=== PATIENT | male | born 1935 | race Hispanic/Latino ===

== ENCOUNTER 2017-10-29 13:52 | Inpatient (IN) | payer MEDICARE, BC ==
[~2017-10-29] VITALS: Ht 170.2 cm; Wt 72.6 kg
[~2017-10-29 13:52] MED LIST: Z HYTRIN; Z.0.ACTOS30 MG; Z.0.ALTACE10 MG; Z.0.AMBIEN10 MG; Z.0.CELEBREX200 MG; Z.0.VICODIN 5-5001 E; Z.0.ZOCOR40 MG; [UNRECOGNIZED DRUG - SUPPLY]
[2017-10-29 14:30] LABS: BASOPHILS % 0.2 % (0.0-1.0); EOSINOPHILS % 0.3 % (0.0-6.0); HEMATOCRIT 37.9 % (38.2-49.6); HEMOGLOBIN 12.8 g/dL (14.0-18.0); LYMPHOCYTES # (AUTO) 0.4 (1.0-3.2); MEAN CORPUSCULAR HEMOGLOBIN 32.2 pg (28-32); MEAN CORPUSCULAR HGB CONC 33.8 g/dL (31-35); MEAN CORPUSCULAR VOLUME 95.5 fL (81-99); MONOCYTES # (AUTO) 0.5 (0.2-0.8); MONOCYTES % 5.3 % (4.4-11.3); NEUTROPHILS # (AUTO) 8.8 (2.1-6.9); NEUTROPHILS % 89.9 % (38.7-80.0); PLATELET COUNT 131 x10e3/uL (140-360); RED BLOOD COUNT 3.97 x10e6/uL (4.3-5.7); RED CELL DISTRIBUTION WIDTH 12.9 % (11.7-14.4)
[2017-10-29] MEDS ORDERED: ALBUTEROL/IPRATROPIUM 3 ML NEB NEB ONE (14:45)
[2017-10-29 14:49] LABS: ALANINE AMINOTRANSFERASE 19 IU/L (0-55); ALBUMIN 4.3 g/dL (3.5-5.0); ALBUMIN/GLOBULIN RATIO 1.5 (0.8-2.0); ALKALINE PHOSPHATASE 78 IU/L (40-150); AMYLASE 33 U/L (25-125); ANION GAP 14.8 mmol/L (8-16); BLOOD UREA NITROGEN 19 mg/dL (7-26); BUN/CREATININE RATIO 21 (6-25); CALCIUM 10.1 mg/dL (8.4-10.2); CARBON DIOXIDE 26 mmol/L (22-29); CHLORIDE 106 mmol/L (98-107); CREATINE KINASE 39 IU/L (30-200); CREATININE, SERUM 0.92 mg/dL (0.72-1.25); EST GLOMERULAR FILTRATION RATE > 60 ML/MIN (60-); GLUCOSE 136 mg/dL (74-118); LIPASE 4 U/L (8-78); POTASSIUM 3.8 mmol/L (3.5-5.1); SODIUM 143 mmol/L (136-145)
[2017-10-29] MEDS ORDERED: DIATRIZOATE MEGL/DIATRIZOA SOD 30 ML BTL PO ONE (15:10)
[2017-10-29] MEDS ORDERED: ONDANSETRON HCL INJ 2 MG/ML VIAL IV STA (15:31)
[2017-10-29] MEDS ORDERED: HYDROMORPHONE 2MG/ML INJ IV ONE (15:45)
--- NOTE | 2017-10-29 17:49 | Diagnostic Imaging Report ---
EXAM: CT Abdomen and Pelvis WITH contrast INDICATION: Abdominal pain, history of small bowel obstruction COMPARISON: None. TECHNIQUE: Abdomen and pelvis were scanned utilizing a multidetector helical scanner from the lung base to the pubic symphysis after administration of IV contrast. Coronal and sagittal reformations were obtained. Routine protocol was performed. Scan was performed when during portal venous phase. IV CONTRAST: 100 mL of Isovue-370 ORAL CONTRAST: None RADIATION DOSE: Total DLP: 474.59 mGy*cm Estimated effective dose: (DLP x 0.015 x size factor) mSv COMPLICATIONS: None FINDINGS: LINES and TUBES: None. LOWER THORAX: There is bibasilar atelectasis. Coronary artery disease present. HEPATOBILIARY: No focal hepatic lesions. No biliary ductal dilation. GALLBLADDER: No radio-opaque stones or sludge. No wall thickening. SPLEEN: No splenomegaly. PANCREAS: No focal masses or ductal dilatation. ADRENALS: No adrenal nodules KIDNEYS/URETERS: Kidneys enhance symmetrically. No hydronephrosis. No cystic or solid mass lesions. No stones. GI TRACT: Dilatation of the stomach and a small bowel with transition point in the right mid abdomen on series 2, image 55, sagittal series 300, image 57 and coronal series 301, image 42 There are diverticula within the colon without evidence of diverticulitis. Appendix is not clearly identified. There is however no fat stranding or adenopathy in the right lower quadrant to suggest appendicitis. PELVIC ORGANS/BLADDER: Unremarkable. LYMPH NODES: No lymphadenopathy. VESSELS: There is moderate atherosclerotic disease in the aorta and major arterial branches. PERITONEUM / RETROPERITONEUM: No free air or fluid. Extensive postsurgical changes in the lower abdomen compatible with prior bilateral hernia repairs BONES: There are degenerative changes in the lumbar spine. SOFT TISSUES: Unremarkable. IMPRESSION: 1. Findings are consistent with small bowel mechanical obstruction at the right lower mid abdomen just above the prior surgical repair compatible with adhesions. 2. There is atherosclerotic disease of the thoracoabdominal aorta and branches including moderate coronary artery calcifications. Signed by: Dr. Jose Justice M.D. on 10/29/2017 5:45 PM
[2017-10-29] MEDS ORDERED: IOPAMIDOL 370 MG/ML 200 ML INFUS..BTL INJ ONE (18:14)
[2017-10-29] MEDS ORDERED: SODIUM CHLORIDE 0.9% 50ML 50 ML ONE (18:14)
[2017-10-29 18:19] LABS: BILIRUBIN,URINE NEGATIVE (NEGATIVE); CLARITY,URINE CLEAR (CLEAR); COLOR,URINE YELLOW (YELLOW); KETONES,URINE NEGATIVE (NEGATIVE); LEUKOCYTE ESTERASE ,URINE NEGATIVE (NEGATIVE); NITRITE,URINE NEGATIVE (NEGATIVE); PROTEIN,URINE DIPSTICK NEGATIVE (NEGATIVE); URINE UROBILINOGEN 0.2 mg/dL (0.2 - 1)
[2017-10-29] MEDS ORDERED: GABAPENTIN300 MG PO (18:26)
[2017-10-29] MEDS ORDERED: NORCO 10-325 T1 EACH PO (18:26)
[2017-10-29] MEDS ORDERED: OMEPRAZOLE40 MG PO (18:26)
[2017-10-29] MEDS ORDERED: VITAMIN D1000 UNI1 PO (18:26)
[2017-10-29 18:30] LABS: EPITHELIAL CELLS,URINE RARE /LPF
[2017-10-29] MEDS ORDERED: [UNRECOGNIZED DRUG - OTHER] PO (18:32)
[2017-10-29] MEDS ORDERED: MIRALAX17 GM PO (18:32)
[2017-10-29] MEDS: MORPHINE SULFATE 2 MG/ML SYR IV PRN (18:45)
[2017-10-29] MEDS: ONDANSETRON HCL INJ 2 MG/ML VIAL IV PRN (18:47)
[2017-10-29] MEDS ORDERED: BENZOCAINE/TETRACAINE/BUTAMBEN AERO SPRAY 56 GM CAN ONE (18:51)
[2017-10-29 19:29] VITALS: BP 153/63
[2017-10-29] MEDS: D5.45%NS/KCL 20MEQ 1,000 ML IV SCH (19:57)
[2017-10-29] MEDS: LEVOFLOXACIN 500MG/D5W 100ML IV SCH (19:59)
[2017-10-29] MEDS: SODIUM CHLORIDE 0.9% 250ML IRRIG IR SCH ×2 (19:59→22:47)
[2017-10-29 20:00] VITALS: BP 153/63
[2017-10-29 20:27] VITALS: BP 153/63
[2017-10-29] MEDS ORDERED: METRONIDAZOLE 500MG/NS 100ML IV SCH (22:00)
[2017-10-29] MEDS: METRONIDAZOLE 500MG/NS 100ML 100 ML IV SCH (22:35)
[2017-10-30] VITALS (7 sets, daily range): BP systolic 127–148; BP diastolic 60–65
[2017-10-30] MEDS: ONDANSETRON HCL INJ 2 MG/ML VIAL IV PRN ×3 (00:47→14:31)
[2017-10-30] MEDS: MORPHINE SULFATE 2 MG/ML SYR IV PRN ×5 (00:47→20:36)
[2017-10-30] MEDS: SODIUM CHLORIDE 0.9% 250ML IRRIG IR SCH ×6 (02:43→22:30)
[2017-10-30] MEDS: METRONIDAZOLE 500MG/NS 100ML 100 ML IV SCH ×3 (05:26→22:27)
[2017-10-30 06:09] LABS: BASOPHILS % 0.1 % (0.0-1.0); EOSINOPHILS % 0.2 % (0.0-6.0); HEMATOCRIT 33.8 % (38.2-49.6); HEMOGLOBIN 11.6 g/dL (14.0-18.0); LYMPHOCYTES # (AUTO) 0.5 (1.0-3.2); LYMPHOCYTES % 6.4 % (18.0-39.1); MEAN CORPUSCULAR HEMOGLOBIN 32.4 pg (28-32); MEAN CORPUSCULAR HGB CONC 34.3 g/dL (31-35); MEAN CORPUSCULAR VOLUME 94.4 fL (81-99); MONOCYTES # (AUTO) 0.6 (0.2-0.8); MONOCYTES % 7.5 % (4.4-11.3); NEUTROPHILS # (AUTO) 7.1 (2.1-6.9); NEUTROPHILS % 85.3 % (38.7-80.0); PLATELET COUNT 138 x10e3/uL (140-360); RED BLOOD COUNT 3.58 x10e6/uL (4.3-5.7); RED CELL DISTRIBUTION WIDTH 13.2 % (11.7-14.4)
[2017-10-30 06:35] LABS: ANION GAP 11.9 mmol/L (8-16); BLOOD UREA NITROGEN 19 mg/dL (7-26); BUN/CREATININE RATIO 24 (6-25); CALCIUM 9.3 mg/dL (8.4-10.2); CARBON DIOXIDE 26 mmol/L (22-29); CHLORIDE 107 mmol/L (98-107); CREATININE, SERUM 0.78 mg/dL (0.72-1.25); EST GLOMERULAR FILTRATION RATE > 60 ML/MIN (60-); GLUCOSE 116 mg/dL (74-118); POTASSIUM 3.9 mmol/L (3.5-5.1); SODIUM 141 mmol/L (136-145)
[2017-10-30 08:41] LABS: ANISOCYTOSIS SLIGHT; LYMPHOCYTES % (MANUAL) 9 % (19-48); MONOCYTES % (MANUAL) 7 % (3.4-9.0); NEUTROPHILS % (MANUAL) 84 % (40-74); PLATELET ESTIMATE SLIGHTLY DECREASED; PLATELET MORPHOLOGY COMMENT NORMAL; RBC MORPHOLOGY COMMENT NORMAL
--- NOTE | 2017-10-30 08:42 | Consultation ---
DATE OF CONSULTATION: October 30, 2017 Patient is an 82-year-old male who has developed midabdominal pain yesterday. He says the pain was severe and now somewhat a little bit less and intermittent, but still present. He has had associated nausea with no vomiting. Came to the emergency room where CT scan of the abdomen and pelvis revealed small-bowel obstruction. He says he is not passing any flatus. Not had a bowel movement. He is not sure how it has been. Has had previous abdominal surgery, which was repair of bilateral inguinal hernias. He has also had radiation therapy for carcinoma of the prostate. Says he was hospitalized about 10 years ago with similar symptoms that resolved without requiring surgery. PAST MEDICAL HISTORY: Significant for chronic constipation and takes MiraLAX every day, carcinoma of the prostate, previous surgery for bilateral inguinal hernias, and Cruz's esophagus. ALLERGIES: PENICILLIN, SULFA AND ASPIRIN. HOME MEDICATIONS: Celebrex, gabapentin, hydrocodone, Prilosec, Actos, Altace, Zocor, Hytrin, Ambien, and vitamin D. FAMILY HISTORY: Noncontributory. SOCIAL HISTORY: Patient does not smoke cigarettes or drink alcohol. REVIEW OF SYSTEMS: Is as stated above. Has not had any fever or weight loss. PHYSICAL EXAMINATION GENERAL: The patient is awake and alert, and in no distress. NG tube in place. VITALS: Normal. Blood pressure is normal. He is not tachycardic. HEENT: Reveals no scleral icterus. NECK: Has no masses. LUNGS: Equal breath sounds are clear bilaterally. CARDIAC: Regular rate and rhythm with no murmur. ABDOMEN: Mildly distended. It is soft. There is epigastric tenderness. There is no mass. There is no organomegaly. EXTREMITIES: Have no edema. LAB TESTS: White blood cell count on admission was normal at 9.7, hemoglobin 12.9 and hematocrit 37.9. Platelet count is normal. Chemistries are essentially normal with normal lactic acid. Normal lipase and normal liver functions. ASSESSMENT: An 82-year-old male with small-bowel obstruction. PLAN: Recommend continued nasogastric tube on low section and repeat the abdominal x-ray today. Continue IV fluids. If symptoms do not improve, he may require surgical intervention. Thank you for asking me to see Mr. Cantu. Job#: [id number] TRENT
--- NOTE | 2017-10-30 08:45 | Diagnostic Imaging Report ---
PROCEDURE:ABDOMEN COMP INCL UPR OR DECUB TECHNIQUE:Upright and supine AP views abdomen totaling 3 radiographs INDICATION:Small bowel obstruction COMPARISON:Patients [facility], CT, CT ABDOMEN/PELVIS W, 10/29/2017, 16:18. FINDINGS: See conclusion. CONCLUSION: 1. Nasogastric tube tip at the gastric body. 2. Persistent gaseous small bowel distention up to 5 cm in diameter, with air-fluid levels in the midabdomen. Stool in the ascending colon. Findings remain consistent with small bowel obstruction and are not significantly changed from October 29 given differences in modality. Dictated by: Bob Matias M.D. on 10/30/2017 at 8:48 Electronically approved by: Bob Matias M.D. on 10/30/2017 at 8:48
[2017-10-30] MEDS ORDERED: ACETAMINOPHEN 1000 MG/100 ML IV PRN (09:15)
[2017-10-30] MEDS: D5.45%NS/KCL 20MEQ 1,000 ML IV SCH (09:57)
[2017-10-30] MEDS: PANTOPRAZOLE 40 MG 10ML VIAL IV SCH (09:57)
--- NOTE | 2017-10-30 09:57 | Consultation ---
DATE OF CONSULTATION: October 30, 2017 GASTROENTEROLOGY CONSULTATION REASON FOR CONSULTATION: Small-bowel obstruction. HISTORY OF PRESENT ILLNESS: Mr. Cantu is a pleasant, 82-year-old gentleman who reports a history of prostate radiation with bowel complications, adhesions and a history of prior small-bowel obstruction about 10 years ago that self-resolved with supportive management. He says that he chronically has some issues with his bowels, which he attributes to prior radiation, and he also has had a colonoscopy with Dr. Boothe which was relatively unremarkable several years ago per his report. He last had a bowel movement 2 days ago. He is not currently passing any gas. He had nausea but no vomiting and now has an NG tube in. Imaging is concerning for small-bowel obstruction. He has a history of inguinal hernia surgery. PAST MEDICAL HISTORY 1. Chronic constipation on daily MiraLAX and high-fiber diet. 2. Prostate cancer, status post XRT. 3. Inguinal hernia repair. 4. GERD with Cruz's esophagus. MEDICATION AND ALLERGIES: Reviewed, please see MAR and medication reconciliation form. SOCIAL HISTORY: No alcohol, tobacco or illicit substances. FAMILY HISTORY: Reviewed and noncontributory. REVIEW OF SYSTEMS: A 10-system review is positive for that mentioned in HPI, otherwise unremarkable. PHYSICAL EXAMINATION GENERAL: Competent, alert, in no acute distress. HEENT: Pupils are equal, round and reactive to light. NG tube is in place. NECK: Supple. LUNGS: Clear. CARDIOVASCULAR: S1 and S2. ABDOMEN: Soft. Not particularly distended on my exam. He is mildly tender in the upper abdomen. He has decreased bowel sounds. EXTREMITIES: No clubbing, cyanosis or edema. PSYCH: Calm, cooperative. NEUROLOGIC: Nonfocal. HEM-ONC: No bruising or adenopathy. Electronic health records reviewed for laboratory and radiologic studies. ASSESSMENT 1. Small-bowel obstruction. 2. History of pelvic radiation. 3. History of inguinal hernia repair. 4. Gastroesophageal reflux disease and Cruz's. PLAN: At the current time, will continue him n.p.o. with decompression. Will need to support him with fluids and medications as needed. Will monitor and replace electrolytes as needed. Will monitor his abdomen clinically. Dr. Aguilar is already seeing him in case he does not improve with medical management. I would recommend that he go on a low-residue diet after this episode when he is discharged. Thank you very much for asking me to see Mr. Cantu. Any questions or concerns, please do not hesitate to contact me. I will follow with you. Job#: [id number] VIPIN HOLDER
[2017-10-30] MEDS: KETOROLAC TROMETHAMINE 30 MG/ML VIAL IV PRN (09:58)
[2017-10-30] MEDS ORDERED: BISACODYL 10 MG SUPP PR NR (10:00)
[2017-10-30] MEDS ORDERED: MINERAL OIL 132 ML BTL PR NR ×2 (10:00→13:20)
[2017-10-30] MEDS: LEVOFLOXACIN 500MG/D5W 100ML IV SCH (18:35)
[2017-10-31] VITALS (7 sets, daily range): BP systolic 101–146; BP diastolic 50–65
[2017-10-31] MEDS: SODIUM CHLORIDE 0.9% 250ML IRRIG IR SCH ×9 (02:30→22:30)
[2017-10-31] MEDS: D5.45%NS/KCL 20MEQ 1,000 ML IV SCH ×3 (03:08→23:50)
[2017-10-31] MEDS: MORPHINE SULFATE 2 MG/ML SYR IV PRN (04:27)
[2017-10-31 06:02] LABS: HEMATOCRIT 33.2 % (38.2-49.6); MEAN CORPUSCULAR HEMOGLOBIN 32.2 pg (28-32); MEAN CORPUSCULAR HGB CONC 33.1 g/dL (31-35); MEAN CORPUSCULAR VOLUME 97.1 fL (81-99); PLATELET COUNT 117 x10e3/uL (140-360); RED BLOOD COUNT 3.42 x10e6/uL (4.3-5.7); RED CELL DISTRIBUTION WIDTH 13.3 % (11.7-14.4)
[2017-10-31 06:22] LABS: ANION GAP 9.1 mmol/L (8-16); BLOOD UREA NITROGEN 19 mg/dL (7-26); BUN/CREATININE RATIO 22 (6-25); CALCIUM 9.1 mg/dL (8.4-10.2); CARBON DIOXIDE 26 mmol/L (22-29); CHLORIDE 105 mmol/L (98-107); CREATININE, SERUM 0.85 mg/dL (0.72-1.25); EST GLOMERULAR FILTRATION RATE > 60 ML/MIN (60-); GLUCOSE 120 mg/dL (74-118); POTASSIUM 4.1 mmol/L (3.5-5.1); SODIUM 136 mmol/L (136-145)
[2017-10-31] MEDS: METRONIDAZOLE 500MG/NS 100ML 100 ML IV SCH ×3 (06:32→22:58)
[2017-10-31] MEDS: CHLORASEPTIC SPRAY 177 ML BTL MM PRN ×2 (06:50→22:58)
[2017-10-31 06:58] LABS: FOLATE 17.2 ng/mL (7.0-15.4)
[2017-10-31 07:07] LABS: BAND NEUTROPHILS % (MANUAL) 5 %; EOSINOPHILS % (MANUAL) 5 % (0-7); LYMPHOCYTES % (MANUAL) 7 % (19-48); METAMYELOCYTES % (MANUAL) 2 % (0-0); MONOCYTES % (MANUAL) 4 % (3.4-9.0); NEUTROPHILS % (MANUAL) 77 % (40-74)
[2017-10-31 07:08] LABS: ANISOCYTOSIS SLIGHT; PLATELET ESTIMATE SLIGHTLY DECREASED; PLATELET MORPHOLOGY COMMENT NORMAL; POIKILOCYTOSIS SLIGHT
[2017-10-31 07:09] LABS: RBC MORPHOLOGY COMMENT NORMAL
[2017-10-31 07:27] LABS: THYROID STIMULATING HORMONE 0.641 uIU/mL (0.350-4.940)
[2017-10-31] MEDS: PANTOPRAZOLE 40 MG 10ML VIAL IV SCH (08:06)
[2017-10-31] MEDS: KETOROLAC TROMETHAMINE 30 MG/ML VIAL IV PRN (09:16)
[2017-10-31] MEDS ORDERED: DIPHENHYDRAMINE HCL INJ 50 MG/ML VIAL IM PRN (13:00)
[2017-10-31] MEDS ORDERED: NALOXONE HCL INJ 0.4 MG/ML AMP IV PRN (13:00)
[2017-10-31] MEDS ORDERED: ACETAMINOPHEN 1000 MG/100 ML IV PRN (13:00)
[2017-10-31] MEDS ORDERED: MORPHINE SULFATE 1 MG/ML 30ML PCA IV PRN (13:00)
[2017-10-31] MEDS ORDERED: HYDROMORPHONE 1MG/1ML INJ ONE (13:03)
[2017-10-31] MEDS ORDERED: MORPHINE SULFATE 1 MG/ML 30ML PCA ONE (13:12)
[2017-10-31] MEDS: DEXTROSE 5%/LACTATED RINGERS 1,000 ML IV SCH ×2 (14:10→20:47)
--- NOTE | 2017-10-31 15:08 | Operative Report ---
DATE OF PROCEDURE: October 31, 2017 PREOPERATIVE DIAGNOSIS: Small-bowel obstruction. 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 PROCEDURE: 1. Exploratory laparotomy. 2. Small-bowel resection. PORTFOLIO MANAGER: None. ANESTHESIA: General. INDICATIONS AND FINDINGS: The patient is an 82-year-old male who presented with complaints of abdominal pain, nausea and vomiting. Workup revealed a small-bowel obstruction. At surgery patient was found to have a small-bowel obstruction secondary to a strictured segment of small bowel where there were inspissated GI contents. At the point of obstruction, the proximal bowel was dilated. Distal bowel was collapsed. The colon was collapsed. TECHNIQUE: After adequate general endotracheal anesthesia, patient in supine position, the abdomen was prepped and draped in sterile fashion with Hermes solution. Through a lower midline incision, the peritoneal cavity was entered. Initial exploration revealed a large amount of serous ascites, which was aspirated. About a liter was aspirated. The small bowel was delivered into the wound. There was found to be a point of obstruction where there were inspissated small-bowel GI contents where there appeared to be a strictured segment of small bowel. The bowel proximal to the area of the stricture was divided with a PANCHO stapler, and the bowel distal to this was also divided with a PANCHO stapler. Mesentery was divided with the Enseal device, and the specimen was removed. Anastomosis was made between the proximal and distal bowel with a PANCHO stapler and TL-60 stapler. Mesenteric defect was then closed with 3-0 Vicryl. Hemostasis was seen to be adequate. The peritoneal cavity was irrigated with a large amount of warm saline, inspected for hemostasis, which was seen to be adequate. The midline fascia was then closed with a running suture of number 1 PDS. The subcutaneous tissue was irrigated with saline. Skin was closed with damaris. A sterile dressing was applied. The patient tolerated the procedure well. Estimated blood loss was 50 mL. There were no complications. All counts were correct. The patient was taken to the recovery room in satisfactory condition. Job#: [id number] EV cc:BRIAN WELLINGTON MD
[2017-10-31] MEDS: ONDANSETRON HCL INJ 2 MG/ML VIAL IV PRN ×2 (15:29→19:36)
[2017-10-31] MEDS: LEVOFLOXACIN 500MG/D5W 100ML IV SCH (17:48)
[2017-10-31] MEDS ORDERED: MIDAZOLAM HCL 2 MG/2 ML VIAL ONE (18:32)
[2017-10-31] MEDS ORDERED: FENTANYL CITRATE/PF 100MCG/2 ML INJ ONE (18:32)
[2017-10-31] MEDS ORDERED: SUCCINYLCHOLINE 200 MG/10 ML SYR ONE (19:43)
[2017-10-31] MEDS ORDERED: NEOSTIGMINE 5 MG/5ML SYR ONE (19:43)
[2017-10-31] MEDS ORDERED: SEVOFLURANE INHAL SOLN 250 ML PEN BTL ONE (19:43)
[2017-10-31] MEDS ORDERED: ONDANSETRON HCL INJ 2 MG/ML VIAL ONE (19:43)
[2017-10-31] MEDS ORDERED: PROPOFOL IV EMULSION 10 MG/ML 20 ML VIAL ONE (19:43)
[2017-10-31] MEDS ORDERED: EPHEDRINE SULFATE INJ 50 MG/10 ML SYR ONE (19:43)
[2017-10-31] MEDS ORDERED: ACETAMINOPHEN 1000 MG/100 ML IV ONE (19:43)
[2017-10-31] MEDS ORDERED: ROCURONIUM BROMIDE 10 MG/ML 5ML VIAL ONE (19:43)
[2017-10-31] MEDS ORDERED: LIDOCAINE HCL 2% LOCAL INJ 5 ML SDV VIAL INJ ONE (19:43)
[2017-10-31] MEDS ORDERED: GLYCOPYRROLATE INJ 1MG/ 5 ML SYR ONE (19:43)
[2017-10-31] MEDS ORDERED: DEXAMETHASONE SOD PHOS INJ 4 MG/ML VIAL ONE (19:43)
[2017-11-01] VITALS (7 sets, daily range): BP systolic 91–129; BP diastolic 49–60
[2017-11-01] MEDS: SODIUM CHLORIDE 0.9% 250ML IRRIG IR SCH ×6 (02:30→21:46)
[2017-11-01] MEDS: DEXTROSE 5%/LACTATED RINGERS 1,000 ML IV SCH (04:47)
[2017-11-01] MEDS: METRONIDAZOLE 500MG/NS 100ML 100 ML IV SCH ×3 (05:52→22:29)
[2017-11-01 06:43] LABS: EOSINOPHILS % 0.3 % (0.0-6.0); HEMATOCRIT 26.5 % (38.2-49.6); HEMOGLOBIN 8.8 g/dL (14.0-18.0); LYMPHOCYTES # (AUTO) 0.3 (1.0-3.2); LYMPHOCYTES % 7.6 % (18.0-39.1); MEAN CORPUSCULAR HEMOGLOBIN 32.2 pg (28-32); MEAN CORPUSCULAR HGB CONC 33.2 g/dL (31-35); MEAN CORPUSCULAR VOLUME 97.1 fL (81-99); MONOCYTES # (AUTO) 0.5 (0.2-0.8); MONOCYTES % 16.2 % (4.4-11.3); NEUTROPHILS # (AUTO) 2.5 (2.1-6.9); NEUTROPHILS % 75.9 % (38.7-80.0); PLATELET COUNT 101 x10e3/uL (140-360); RED BLOOD COUNT 2.73 x10e6/uL (4.3-5.7); RED CELL DISTRIBUTION WIDTH 13.3 % (11.7-14.4)
[2017-11-01 07:19] LABS: ANION GAP 10.3 mmol/L (8-16); BLOOD UREA NITROGEN 19 mg/dL (7-26); BUN/CREATININE RATIO 24 (6-25); CALCIUM 8.6 mg/dL (8.4-10.2); CARBON DIOXIDE 26 mmol/L (22-29); CHLORIDE 108 mmol/L (98-107); EST GLOMERULAR FILTRATION RATE > 60 ML/MIN (60-); GLUCOSE 118 mg/dL (74-118); POTASSIUM 4.3 mmol/L (3.5-5.1); SODIUM 140 mmol/L (136-145)
[2017-11-01 08:34] LABS: BAND NEUTROPHILS % (MANUAL) 12 %; LYMPHOCYTES % (MANUAL) 11 % (19-48); MONOCYTES % (MANUAL) 10 % (3.4-9.0); NEUTROPHILS % (MANUAL) 67 % (40-74); PLATELET ESTIMATE SLIGHTLY DECREASED; PLATELET MORPHOLOGY COMMENT NORMAL; RBC MORPHOLOGY COMMENT NORMAL
[2017-11-01] MEDS: PANTOPRAZOLE 40 MG 10ML VIAL IV SCH (08:46)
[2017-11-01] MEDS: CHLORASEPTIC SPRAY 177 ML BTL MM PRN (08:51)
[2017-11-01] MEDS: KETOROLAC TROMETHAMINE 30 MG/ML VIAL IV PRN ×2 (08:51→21:18)
[2017-11-01] MEDS: D5.45%NS/KCL 20MEQ 1,000 ML IV SCH ×2 (10:52→21:18)
[2017-11-01] MEDS ORDERED: FUROSEMIDE INJ 10 MG/ML 2 ML VIAL IV ONE (15:45)
[2017-11-01] MEDS ORDERED: SODIUM CHLORIDE 0.9% 500ML 500 ML IV ONE (15:45)
[2017-11-01] MEDS: LEVOFLOXACIN 500MG/D5W 100ML IV SCH (17:37)
[2017-11-02] VITALS (7 sets, daily range): BP systolic 121–148; BP diastolic 58–67
[2017-11-02] MEDS: MORPHINE SULFATE 2 MG/ML SYR IV PRN ×2 (00:04→04:18)
[2017-11-02] MEDS: SODIUM CHLORIDE 0.9% 250ML IRRIG IR SCH ×6 (03:18→22:30)
[2017-11-02] MEDS: METRONIDAZOLE 500MG/NS 100ML 100 ML IV SCH ×3 (05:11→21:35)
[2017-11-02] MEDS: PANTOPRAZOLE 40 MG 10ML VIAL IV SCH (08:33)
[2017-11-02] MEDS: KETOROLAC TROMETHAMINE 30 MG/ML VIAL IV PRN ×2 (09:00→17:43)
[2017-11-02] MEDS: D5.45%NS/KCL 20MEQ 1,000 ML IV SCH (09:09)
[2017-11-02] MEDS: LEVOFLOXACIN 500MG/D5W 100ML IV SCH (17:30)
[2017-11-02 20:55] LABS: ANION GAP 10.5 mmol/L (8-16); BLOOD UREA NITROGEN 18 mg/dL (7-26); BUN/CREATININE RATIO 21 (6-25); CALCIUM 8.9 mg/dL (8.4-10.2); CARBON DIOXIDE 26 mmol/L (22-29); CHLORIDE 107 mmol/L (98-107); CREATININE, SERUM 0.85 mg/dL (0.72-1.25); EST GLOMERULAR FILTRATION RATE > 60 ML/MIN (60-); GLUCOSE 122 mg/dL (74-118); MAGNESIUM 2.4 MG/DL (1.3-2.1); PHOSPHORUS 1.7 MG/DL (2.3-4.7); POTASSIUM 4.5 mmol/L (3.5-5.1); SODIUM 139 mmol/L (136-145)
[2017-11-03] VITALS (8 sets, daily range): BP systolic 132–170; BP diastolic 60–74
[2017-11-03] MEDS: KETOROLAC TROMETHAMINE 30 MG/ML VIAL IV PRN ×2 (02:07→13:14)
[2017-11-03] MEDS: SODIUM CHLORIDE 0.9% 250ML IRRIG IR SCH ×5 (02:47→16:20)
[2017-11-03] MEDS: D5.45%NS/KCL 20MEQ 1,000 ML IV SCH ×2 (03:00→17:46)
[2017-11-03] MEDS: METRONIDAZOLE 500MG/NS 100ML 100 ML IV SCH ×3 (05:21→21:09)
[2017-11-03 06:24] LABS: HEMATOCRIT 25.1 % (38.2-49.6); HEMOGLOBIN 8.8 g/dL (14.0-18.0); MEAN CORPUSCULAR HEMOGLOBIN 32.7 pg (28-32); MEAN CORPUSCULAR HGB CONC 35.1 g/dL (31-35); MEAN CORPUSCULAR VOLUME 93.3 fL (81-99); PLATELET COUNT 100 x10e3/uL (140-360); RED BLOOD COUNT 2.69 x10e6/uL (4.3-5.7); RED CELL DISTRIBUTION WIDTH 13.2 % (11.7-14.4)
[2017-11-03 06:50] LABS: ANION GAP 9.1 mmol/L (8-16); BLOOD UREA NITROGEN 19 mg/dL (7-26); BUN/CREATININE RATIO 22 (6-25); CALCIUM 8.7 mg/dL (8.4-10.2); CARBON DIOXIDE 25 mmol/L (22-29); CHLORIDE 107 mmol/L (98-107); CREATININE, SERUM 0.85 mg/dL (0.72-1.25); EST GLOMERULAR FILTRATION RATE > 60 ML/MIN (60-); GLUCOSE 111 mg/dL (74-118); POTASSIUM 4.1 mmol/L (3.5-5.1); SODIUM 137 mmol/L (136-145)
[2017-11-03] MEDS ORDERED: MINERAL OIL 132 ML BTL PR ONE (07:15)
[2017-11-03] MEDS: ONDANSETRON HCL INJ 2 MG/ML VIAL IV PRN ×3 (08:15→17:44)
[2017-11-03] MEDS: PANTOPRAZOLE 40 MG 10ML VIAL IV SCH (08:15)
[2017-11-03 09:32] LABS: BAND NEUTROPHILS % (MANUAL) 2 %; EOSINOPHILS % (MANUAL) 2 % (0-7); HYPOCHROMASIA SLIGHT; LYMPHOCYTES % (MANUAL) 6 % (19-48); MONOCYTES % (MANUAL) 4 % (3.4-9.0); NEUTROPHILS % (MANUAL) 86 % (40-74); PLATELET ESTIMATE SLIGHTLY DECREASED; PLATELET MORPHOLOGY COMMENT NORMAL; RBC MORPHOLOGY COMMENT NORMAL
[2017-11-03] MEDS: METOCLOPRAMIDE HCL 10 MG/2ML VIAL IV SCH ×2 (10:50→16:20)
[2017-11-03] MEDS: MORPHINE SULFATE 2 MG/ML SYR IV PRN ×2 (10:55→17:45)
--- NOTE | 2017-11-03 14:28 | Diagnostic Imaging Report ---
PROCEDURE:X-RAY ABDOMEN - KUB COMPARISON:Patients [facility], DX, ABDOMEN COMP INCL UPR OR DECUB, 10/30/2017, 7:20. INDICATIONS:POST OP FOLLOW UP FOR OBSTRUCTION. 3 DAYS AGO FINDINGS: See impression. CONCLUSION: 1. Several loops of mildly to moderately dilated small bowel are seen in the left abdomen, with maximal measurement of 4.5 cm, which may represent postoperative ileus. 2. No air-filled, dilated loops of large bowel. 3. Bibasilar atelectatic changes. 4. Multiple metallic damaris project over the pelvic midline. Stable multiple metallic coils projecting over the pelvis. 5. A radiopaque tube/catheter traverses the left lower hemithorax and left abdomen. 5. No acute bony abnormalities. Mild rightward curvature of the lumbar spine. Hair Martines M.D. Dictated by: Hair Martines M.D. on 11/03/2017 at 14:32 Electronically approved by: Hair Martines M.D. on 11/03/2017 at 14:32
[2017-11-03] MEDS: LEVOFLOXACIN 500MG/D5W 100ML IV SCH (17:46)
[2017-11-04] VITALS (7 sets, daily range): BP systolic 138–154; BP diastolic 62–69
[2017-11-04] MEDS: KETOROLAC TROMETHAMINE 30 MG/ML VIAL IV PRN (01:16)
[2017-11-04] MEDS: ONDANSETRON HCL INJ 2 MG/ML VIAL IV PRN ×3 (02:55→23:39)
[2017-11-04] MEDS: MORPHINE SULFATE 2 MG/ML SYR IV PRN ×4 (02:55→23:39)
[2017-11-04] MEDS: METRONIDAZOLE 500MG/NS 100ML 100 ML IV SCH ×3 (06:09→21:40)
[2017-11-04 07:30] LABS: BASOPHILS % 0.2 % (0.0-1.0); EOSINOPHILS # (AUTO) 0.4 (0.0-0.4); EOSINOPHILS % 6.4 % (0.0-6.0); HEMATOCRIT 24.6 % (38.2-49.6); HEMOGLOBIN 8.4 g/dL (14.0-18.0); LYMPHOCYTES # (AUTO) 0.5 (1.0-3.2); LYMPHOCYTES % 8.4 % (18.0-39.1); MEAN CORPUSCULAR HEMOGLOBIN 33.1 pg (28-32); MEAN CORPUSCULAR HGB CONC 34.1 g/dL (31-35); MEAN CORPUSCULAR VOLUME 96.9 fL (81-99); MONOCYTES # (AUTO) 0.5 (0.2-0.8); MONOCYTES % 8.3 % (4.4-11.3); NEUTROPHILS # (AUTO) 4.2 (2.1-6.9); NEUTROPHILS % 76.3 % (38.7-80.0); PLATELET COUNT 109 x10e3/uL (140-360); RED BLOOD COUNT 2.54 x10e6/uL (4.3-5.7); RED CELL DISTRIBUTION WIDTH 13.2 % (11.7-14.4)
[2017-11-04 07:59] LABS: ANION GAP 8.9 mmol/L (8-16); BLOOD UREA NITROGEN 17 mg/dL (7-26); BUN/CREATININE RATIO 20 (6-25); CALCIUM 8.6 mg/dL (8.4-10.2); CARBON DIOXIDE 24 mmol/L (22-29); CHLORIDE 108 mmol/L (98-107); CREATININE, SERUM 0.86 mg/dL (0.72-1.25); EST GLOMERULAR FILTRATION RATE > 60 ML/MIN (60-); GLUCOSE 100 mg/dL (74-118); POTASSIUM 3.9 mmol/L (3.5-5.1); SODIUM 137 mmol/L (136-145)
[2017-11-04] MEDS: METOCLOPRAMIDE HCL 10 MG/2ML VIAL IV SCH ×2 (09:45→17:03)
[2017-11-04] MEDS: PANTOPRAZOLE 40 MG 10ML VIAL IV SCH (09:45)
[2017-11-04 10:56] LABS: EOSINOPHILS % (MANUAL) 7 % (0-7); LYMPHOCYTES % (MANUAL) 8 % (19-48); MONOCYTES % (MANUAL) 7 % (3.4-9.0); NEUTROPHILS % (MANUAL) 78 % (40-74); PLATELET ESTIMATE SLIGHTLY DECREASED; PLATELET MORPHOLOGY COMMENT NORMAL; RBC MORPHOLOGY COMMENT NORMAL
[2017-11-04] MEDS: D5.45%NS/KCL 20MEQ 1,000 ML IV SCH ×2 (11:36→21:10)
[2017-11-04] MEDS: LEVOFLOXACIN 500MG/D5W 100ML IV SCH (17:03)
[2017-11-05] VITALS (8 sets, daily range): BP systolic 136–161; BP diastolic 62–70
[2017-11-05] MEDS: D5.45%NS/KCL 20MEQ 1,000 ML IV SCH (04:21)
[2017-11-05] MEDS: MORPHINE SULFATE 2 MG/ML SYR IV PRN ×4 (04:21→22:47)
[2017-11-05] MEDS: ONDANSETRON HCL INJ 2 MG/ML VIAL IV PRN (04:21)
[2017-11-05] MEDS: METRONIDAZOLE 500MG/NS 100ML 100 ML IV SCH ×3 (05:39→21:29)
[2017-11-05] MEDS: METOCLOPRAMIDE HCL 10 MG/2ML VIAL IV SCH ×2 (09:10→16:39)
[2017-11-05] MEDS: PANTOPRAZOLE 40 MG 10ML VIAL IV SCH (09:10)
--- NOTE | 2017-11-05 11:59 | Diagnostic Imaging Report ---
EXAM: ABDOMEN-1VIEW (KUB), DATE: 11/05/2017 10:50 AM INDICATION: Abdominal pain. Partial obstruction. COMPARISON: None. FINDINGS: LINES/TUBES: None BOWEL PATTERN: Interval decrease in caliber of small bowel loops. SOFT TISSUES: No abnormal calcifications. Postsurgical changes again observed pelvis. LUNG BASES: Left basilar patchy density may represent atelectasis. BONES: No acute findings. Multilevel degenerative changes of the thoracolumbar spine. IMPRESSION: Findings suggestive of resolving ileus. Signed by: Dr. Main Barger M.D. on 11/05/2017 11:55 AM
[2017-11-05] MEDS: POLYETHYLENE GLYCOL 3350 17 GM PACK PO SCH (12:08)
[2017-11-05] MEDS: LEVOFLOXACIN 500MG/D5W 100ML IV SCH (16:52)
[2017-11-05] MEDS: TAMSULOSIN HCL 0.4 MG CAP PO SCH (21:29)
[2017-11-05] MEDS: ZOLPIDEM TARTRATE 10 MG TAB PO PRN (22:47)
[2017-11-06] VITALS (9 sets, daily range): BP systolic 126–158; BP diastolic 60–72
[2017-11-06] MEDS: METRONIDAZOLE 500MG/NS 100ML 100 ML IV SCH ×3 (05:59→22:36)
[2017-11-06] MEDS: MORPHINE SULFATE 2 MG/ML SYR IV PRN (05:59)
[2017-11-06 06:52] LABS: BASOPHILS % 0.4 % (0.0-1.0); EOSINOPHILS # (AUTO) 0.3 (0.0-0.4); EOSINOPHILS % 4.7 % (0.0-6.0); HEMOGLOBIN 8.6 g/dL (14.0-18.0); LYMPHOCYTES # (AUTO) 0.6 (1.0-3.2); LYMPHOCYTES % 8.3 % (18.0-39.1); MEAN CORPUSCULAR HEMOGLOBIN 32.2 pg (28-32); MEAN CORPUSCULAR HGB CONC 33.1 g/dL (31-35); MEAN CORPUSCULAR VOLUME 97.4 fL (81-99); MONOCYTES # (AUTO) 0.6 (0.2-0.8); MONOCYTES % 8.1 % (4.4-11.3); NEUTROPHILS # (AUTO) 5.6 (2.1-6.9); NEUTROPHILS % 77.8 % (38.7-80.0); PLATELET COUNT 117 x10e3/uL (140-360); RED BLOOD COUNT 2.67 x10e6/uL (4.3-5.7); RED CELL DISTRIBUTION WIDTH 13.6 % (11.7-14.4)
[2017-11-06 07:13] LABS: ANION GAP 10.1 mmol/L (8-16); BLOOD UREA NITROGEN 10 mg/dL (7-26); BUN/CREATININE RATIO 12 (6-25); CALCIUM 8.5 mg/dL (8.4-10.2); CARBON DIOXIDE 24 mmol/L (22-29); CHLORIDE 108 mmol/L (98-107); CREATININE, SERUM 0.82 mg/dL (0.72-1.25); EST GLOMERULAR FILTRATION RATE > 60 ML/MIN (60-); GLUCOSE 92 mg/dL (74-118); POTASSIUM 4.1 mmol/L (3.5-5.1); SODIUM 138 mmol/L (136-145)
[2017-11-06 07:27] LABS: MAGNESIUM 1.6 MG/DL (1.3-2.1); PHOSPHORUS 2.8 MG/DL (2.3-4.7)
[2017-11-06] MEDS: POLYETHYLENE GLYCOL 3350 17 GM PACK PO SCH (08:09)
[2017-11-06] MEDS: METOCLOPRAMIDE HCL 10 MG/2ML VIAL IV SCH ×2 (08:09→17:27)
[2017-11-06] MEDS: PANTOPRAZOLE 40 MG 10ML VIAL IV SCH (08:09)
[2017-11-06] MEDS: [UNRECOGNIZED DRUG - OTHER] PO SCH (08:51)
[2017-11-06] MEDS: KETOROLAC TROMETHAMINE 30 MG/ML VIAL IV PRN ×2 (14:23→22:42)
[2017-11-06] MEDS: LEVOFLOXACIN 500MG/D5W 100ML IV SCH (17:27)
[2017-11-06] MEDS: TAMSULOSIN HCL 0.4 MG CAP PO SCH (20:38)
[2017-11-06] MEDS: ZOLPIDEM TARTRATE 10 MG TAB PO PRN (22:36)
[2017-11-07 04:00] VITALS: BP 167/72
[2017-11-07] MEDS: METRONIDAZOLE 500MG/NS 100ML 100 ML IV SCH (06:14)
[2017-11-07] MEDS: [UNRECOGNIZED DRUG - OTHER] PO SCH (07:45)
[2017-11-07] MEDS: PANTOPRAZOLE 40 MG 10ML VIAL IV SCH (07:45)
[2017-11-07] MEDS: POLYETHYLENE GLYCOL 3350 17 GM PACK PO SCH (07:45)
[2017-11-07] MEDS: METOCLOPRAMIDE HCL 10 MG/2ML VIAL IV SCH (07:45)
[2017-11-07] MEDS: KETOROLAC TROMETHAMINE 30 MG/ML VIAL IV PRN (07:45)
[2017-11-07 07:54] VITALS: BP 183/73
--- NOTE | 2017-11-07 09:50 | Discharge Summary ---
PRIMARY CARE PHYSICIAN: Dr. Varun Ivy. CONSULTANTS: Dr. Clifton Aguilar and Dr. Fran Mg. FINAL DIAGNOSES 1. Small-bowel obstruction. 2. Status post small-bowel resection with exploratory laparotomy. 3. Medical debility, improving. SUMMARY: This 82-year-old male came in with small-bowel obstruction. Patient was severely constipated as well. Conservative measure with NG tube was unsuccessful. Subsequently, the patient underwent small-bowel resection. Patient was stable. The patient had lysis of adhesions as well. Procedure was done on October 31, 2017. The patient is doing much better now. He is ambulatory. He had a good bowel movement. The patient will go home today. He will go home with home health. He is ambulatory with a walker. Home health can do physical therapy and monitoring of his status. Discharged with Senna-S 1 tablet b.i.d., Zofran ODT 4 mg q.4 p.r.n. for nausea and vomiting and Flomax 0.4 mg at bedtime. Patient will resume his home medications. I will follow up with the patient on . He will follow with Dr. Aguilar next week. Job#: [id number]
[2017-11-07 11:03] VITALS: BP 183/73
[2017-11-07 11:49] VITALS: BP 122/58
== END 2017-11-07 13:18 | disposition home health service (06) | DRG 330 ==
LOC: ER 13:52 → ERHOLD 18:30 → MED/SURG 19:34
PROVIDERS: ADMIT Internal Medicine; ATTEND Internal Medicine
PROC: 0DB80ZZ Excision of Small Intestine, Open Approach (ICD-10-PCS; principal; 2017-10-31 12:00)
DX: K56.699 Other intestinal obstruction unspecified as to partial versus complete obstruction (principal); R18.8 Other ascites; Z85.46 Personal history of malignant neoplasm of prostate; Z92.3 Personal history of irradiation; E78.5 Hyperlipidemia, unspecified; K59.09 Other constipation; K56.7 Ileus, unspecified; K21.9 Gastro-esophageal reflux disease without esophagitis; I10 Essential (primary) hypertension; K22.70 Barrett's esophagus without dysplasia; R53.81 Other malaise; M19.90 Unspecified osteoarthritis, unspecified site; E86.0 Dehydration; G89.29 Other chronic pain; M54.9 Dorsalgia, unspecified; R07.0 Pain in throat; Z88.6 Allergy status to analgesic agent; Z88.0 Allergy status to penicillin; Z88.2 Allergy status to sulfonamides
CPT/HCPCS: 36415; 74018; 74177; 80048; 80053; 81001; 82150; 82550; 82553; 82607; 82746; 83605; 83690; 83735; 84100; 84443; 84484; 85007; 85025; 85027; 88305; 88307; 93005; 96360; 96367; 96375; 96376; 97139; 99284; J1100; J1170; J1885; J1940; J1956; J2001; J2250; J2270; J2405; J2765; J7040; J7120; Q9967

== ENCOUNTER → 2018-05-01 | Outpatient (CLI) | payer MEDICARE, BC ==
[~2018-05-01] MED LIST changes: +GABAPENTIN300 MG PO; +MIRALAX17 GM PO; +NORCO 10-325 T1 EACH PO; +OMEPRAZOLE40 MG PO; +VITAMIN D1000 UNI1 PO; +[UNRECOGNIZED DRUG - OTHER] PO
--- NOTE | 2018-05-01 08:52 | Diagnostic Imaging Report ---
PROCEDURE:ABDOMINAL ULTRASOUND COMPARISON:CT abdomen and pelvis with contrast 10/29/2017.. INDICATIONS:EPIGASTRIC PAIN TECHNIQUE: Brown-scale and color sonographic images were obtained of the abdomen in transverse and sagittal planes. FINDINGS: Liver: 13.5 in length in right midclavicular line. Normal parenchymal echogenicity. No masses. Main portal vein: 0.6 cm in caliber, hepatopetal flow Gallbladder: Unremarkable sonographic appearance without shadowing calculus, wall thickening, or pericholecystic fluid. Common Bile Duct: 0.3 cm in caliber. Sonographic Hood's sign: Reported as negative. Right kidney: 11.7 cm in length. Lower pole cyst measures 4.9 x 3.7 x 4.7 cm and contains low-level internal echoes. Upper pole cyst measures 2.1 x 1.3 x 2.2 cm. No solid mass or hydronephrosis. Left kidney: 10.7 cm in length. Upper pole cyst measures 1.7 x 1.6 x 1.9 cm. No solid mass lesion or hydronephrosis. Spleen: 11.6 cm in length. Uniform parenchymal echotexture. Pancreas: Poorly visualized due to overlying bowel gas. Inferior vena cava: Poorly visualized due to overlying bowel gas. Aorta: Poorly visualized due to overlying bowel gas. Ascites: None CONCLUSION: Poor visualization of midline structures due to overlying bowel gas. Bilateral benign-appearing renal cysts. Otherwise unremarkable abdominal ultrasound. Dictated by: Clifton Owusu M.D. on 05/01/2018 at 9:02 Electronically approved by: Clifton Owusu M.D. on 05/01/2018 at 9:02
== END ==
LOC: US 08:03
PROVIDERS: ATTEND Internal Medicine Gastroenterology
DX: R10.13 Epigastric pain (principal); I10 Essential (primary) hypertension; Z71.3 Dietary counseling and surveillance
CPT/HCPCS: 76700

== ENCOUNTER → 2018-06-07 | Outpatient (CLI) | payer MEDICARE, BC ==
--- NOTE | 2018-06-07 18:19 | Diagnostic Imaging Report ---
Hepatobiliary Scan with Gallbladder Ejection Fraction Clinical information: 82 M with chronic abdominal pain Technique: Following intravenous administration of 7.0 millicuries of Tc-99m mebrofenin, dynamic images of the abdomen in the anterior projection were obtained through 30 minutes. Sincalide (CCK analog) 1.5 micrograms was administered intravenously over 30 minutes with additional imaging for determination of gallbladder ejection fraction. Discussion: Perfusion of the liver is normal. Extraction of tracer by the liver parenchyma is normal. Tracer appears promptly within the biliary tract. The gallbladder begins to fill at 5 minutes post injection of tracer and fills adequately. Tracer is seen in the small bowel during the sincalide infusion. There is no contractile response by the gallbladder to the pharmacologic dose of sincalide. No emptying of the gallbladder occurs during the 30 minute infusion. Impression: 1. Filling of the gallbladder excludes acute cystic duct obstruction/acute cholecystitis. 2. The gallbladder ejection fraction is undefined as there is no emptying of the gallbladder during the infusion of sincalide. 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 Signed by: Dr. Bernadette Ford M.D. on 06/07/2018 6:15 PM
== END ==
LOC: NM 13:32
PROVIDERS: ATTEND Internal Medicine Gastroenterology
DX: R10.13 Epigastric pain (principal); K29.70 Gastritis, unspecified, without bleeding; K31.7 Polyp of stomach and duodenum; K44.9 Diaphragmatic hernia without obstruction or gangrene; K22.2 Esophageal obstruction
CPT/HCPCS: 78227; A9537

== ENCOUNTER → 2018-06-26 | Day surgery (SDC) | payer MEDICARE, BC ==
[2018-06-22 14:48] LABS: BASOPHILS % 0.2 % (0.0-1.0); EOSINOPHILS # (AUTO) 0.1 (0.0-0.4); EOSINOPHILS % 1.3 % (0.0-6.0); HEMATOCRIT 34.3 % (38.2-49.6); HEMOGLOBIN 11.5 g/dL (14.0-18.0); LYMPHOCYTES # (AUTO) 0.5 (1.0-3.2); LYMPHOCYTES % 8.6 % (18.0-39.1); MEAN CORPUSCULAR HEMOGLOBIN 31.9 pg (28-32); MEAN CORPUSCULAR HGB CONC 33.5 g/dL (31-35); MEAN CORPUSCULAR VOLUME 95.3 fL (81-99); MONOCYTES # (AUTO) 0.3 (0.2-0.8); MONOCYTES % 5.7 % (4.4-11.3); NEUTROPHILS # (AUTO) 4.6 (2.1-6.9); PLATELET COUNT 132 x10e3/uL (140-360); RED CELL DISTRIBUTION WIDTH 13.2 % (11.7-14.4)
--- NOTE | 2018-06-22 15:05 | Diagnostic Imaging Report ---
EXAMINATION: CHEST 2 VIEWS INDICATION: Preop. Gallbladder removal ^PREOP COMPARISON: None FINDINGS: TUBES and LINES: Left anterior chest dual lead cardiac device. LUNGS: Lungs are well inflated. Lungs are clear. There is no evidence of pneumonia or pulmonary edema. PLEURA: No pleural effusion or pneumothorax. HEART AND MEDIASTINUM: The cardiomediastinal silhouette is unremarkable. BONES AND SOFT TISSUES: No acute osseous lesion. Soft tissues are unremarkable. UPPER ABDOMEN: No free air under the diaphragm. IMPRESSION: No acute thoracic abnormality. Signed by: Dr. Noble Hoyos M.D. on 06/22/2018 3:01 PM
[2018-06-22 15:09] LABS: ALANINE AMINOTRANSFERASE 19 IU/L (0-55); ALBUMIN 4.2 g/dL (3.5-5.0); ALBUMIN/GLOBULIN RATIO 1.4 (0.8-2.0); ALKALINE PHOSPHATASE 66 IU/L (40-150); ANION GAP 12.9 mmol/L (8-16); BLOOD UREA NITROGEN 17 mg/dL (7-26); BUN/CREATININE RATIO 18 (6-25); CALCIUM 9.7 mg/dL (8.4-10.2); CARBON DIOXIDE 24 mmol/L (22-29); CHLORIDE 104 mmol/L (98-107); CREATININE, SERUM 0.96 mg/dL (0.72-1.25); EST GLOMERULAR FILTRATION RATE > 60 ML/MIN (60-); GLUCOSE 111 mg/dL (74-118); POTASSIUM 3.9 mmol/L (3.5-5.1); SODIUM 137 mmol/L (136-145)
[~2018-06-26] MED LIST changes: +ACETAMINOPHEN 1000 MG/100 ML 100 ML IV ONE; +ATROPINE SULFATE 1 MG/ML VIAL ONE; +BUPIVACAINE 0.25% 30ML SDV INJ ONE; +CEFAZOLIN SOD 1 GM/NS 50ML 50 ML IV ONE; +DEXAMETHASONE SOD PHOS INJ 4 MG/ML VIAL ONE; +EPHEDRINE SULFATE INJ 50 MG/10 ML SYR ONE; +FENTANYL CITRATE/PF 100MCG/2 ML INJ ONE; +HYDROMORPHONE 2MG/ML 2 MG/ML ML ONE; +LEVOFLOXACIN 500MG/D5W 100ML 100 ML IV ONE; +LIDOCAINE HCL 2% LOCAL INJ 5 ML SDV VIAL INJ ONE; +MIDAZOLAM HCL 2 MG/2 ML VIAL ONE; +MORPHINE SULFATE INJ 4 MG/ML INJ 1ML ONE; +NEOSTIGMINE 5 MG/5ML SYR ONE; +ONDANSETRON HCL INJ 2MG/ML 2ML 2 MG/ML VIAL ONE; +PROPOFOL IV EMULSION 10 MG/ML 20 ML VIAL ONE; +SEVOFLURANE INHAL SOLN 250 ML PEN BTL ONE; +XANAX0.25 MG PO
--- OUTSIDE RECORDS SUMMARY | 2018-06-26 06:29 | XMS REPORT | Summary of Care ---
Author Author [facility] Organization [facility] Address Unknown Phone Unavailable Encounter HQ Encntr_alias(MILY) [id number] Date(s): 08/17/16 - 08/17/16 [facility] [address] [place] [address]- Discharge Disposition: Home or Self Care Attending Physician: Kendall Saavedra MD Referring Physician: Kendall Saavedra MD Vital Signs No data available for this section Problem List No data available for this section Allergies, Adverse Reactions, Alerts Substance Reaction Severity Status aspirin Active Medications No data available for this section Results No data available for this section Immunizations No data available for this section Procedures No data available for this section Social History No data available for this section Assessment and Plan No data available for this section
--- OUTSIDE RECORDS SUMMARY | 2018-06-26 06:29 | XMS REPORT | Continuity of Care Document ---
Author Author 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 [facility] GONZALES KNEE Active 10/25/2016 [facility] N43.0 C61 R33.9 Active 08/03/2016 [facility] ENCYSTED HYDROCELE Active [facility] MALIGNANT NEOPLASM OF PROSTATE Active [facility] RETENTION OF URINE, UNSPECIFIED Active [facility] ULCER OF INTESTINE Active [facility] BODY MASS INDEX (BMI) 24.0-24.9, ADULT Active [facility] Medications Medication Details Route Status Patient Instructions Ordering Provider Order Date Source Allergies, Adverse Reactions, Alerts Substance Category Reaction Severity Reaction type Status Date Reported Comments Source aspirin Assertion Drug allergy Active [facility] Immunizations Immunization Date Given Site Status Last Updated Comments Source Results Order Name Results Value Reference Range Date Interpretation Comments Source Upper GI w small bowel series DX Upper GI w small bowel series DX EXAM: Upper GI and small bowel series HISTORY: History of small bowel resection, intestinal ulcer COMPARISON: CT abdomen 04/19/2007 TECHNIQUE: The patient ingested effervescent crystals and barium without difficulty. Fluoroscopy time 2.48 minutes. Skin dose 203 mGy. 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 Hernia repair clips in the pelvis. Moderate scoliosis. The esophagus demonstrates normal caliber and peristalsis. No hiatal hernia or gastroesophageal reflux is seen. The stomach and duodenum appear unremarkable. No dilated small bowel loops. No appreciable tethering or fold thickening. Contrast reaches the right colon in less than five hours. IMPRESSION: 1. Unremarkable upper GI. 2. Delayed contrast transit through the small bowel of uncertain etiology. 13 01/05/2018 - - Read by: Lauri Polanco MD Dictated Date/time: 01/05/18 16:37 Electronically Signed by: Lauri Polanco MD 01/05/18 16:45 FINAL REPORT [facility] Scrotal/Testicle w Doppler US Scrotal/Testicle w Doppler US Scrotal/Testicle w Doppler US CLINICAL HX: N43.0 Encysted hydrocele. COMPARISON: CT abdomen pelvis 04/19/2007 TECHNIQUE: Multiple static transscrotal images of the testicles are submitted for review. FINDINGS: Testicles are of comparable size. The right testicle measures 2.4 x 1.3 x 2.0 cm and the left testicle measures 3.1 x 1.0 x 2.7 cm. No focal mass or other significant parenchymal abnormality is noted in either testicle. Tiny tunica albuginea cyst, left testicle approximately 4 mm in size. Flow is preserved on the color Doppler and spectral waveform analysis images. Moderate moderate size fat-containing hernias are visualized in both scrotal sacs. No definite bowel is present in either scrotal sac. Right epididymis demonstrates normal morphology. Left epididymis is not visualized. No significant hydrocele is present on either side. IMPRESSION: No significant abnormality is noted in either testicle. Moderate size fat-containing inguinal hernias are identified in both scrotal sacs. No definite bowel is visualized in either scrotal sac. SL:[id number] 08/17/2016 - - Read by: Pierce Oswald MD Dictated Date/time: 08/17/16 12:07 Electronically Signed by: Pierce Oswald MD 08/17/16 12:12 FINAL REPORT [facility] Vital Signs Vital Sign Value Date Comments Source Encounters Location Location Details Encounter Type Encounter Number Reason For Visit Attending Provider ADM Date DC Date Status Source [facility] Outpatient [id number] Kendall Saavedra 08/17/2016 08/18/2016 [facility] OP Therapy Patients [id number] Clifton Judge 11/10/2016 12/10/2016 [facility] OP Therapy Patients [id number] Clifton Judge 12/13/2016 01/12/2017 [facility] Procedures Procedure Code Date Perfomer Comments Source
--- OUTSIDE RECORDS SUMMARY | 2018-06-26 06:29 | XMS REPORT | Summary of Care ---
Author Author [facility] Address Unknown Phone Unavailable Encounter HQ Encntr_alifrank(MILY) [id number] Date(s): 12/13/16 - 01/11/17 [facility] Discharge Disposition: Home or Self Care Attending Physician: Clifton Judge MD Vital Signs No data available for [...]
--- OUTSIDE RECORDS SUMMARY | 2018-06-26 06:29 | XMS REPORT | Summary of Care ---
Author Author [facility] Address Unknown Phone Unavailable Encounter HQ Encntr_alifrank(MILY) [id number] Date(s): 11/10/16 - 12/09/16 [facility] Discharge Disposition: Home or Self Care Attending [...]
--- NOTE | 2018-06-26 10:04 | Operative Report ---
DATE OF PROCEDURE: June 26, 2018 PREOPERATIVE DIAGNOSIS: Chronic cholecystitis. POSTOPERATIVE DIAGNOSIS: Chronic cholecystitis and cholelithiasis. PROCEDURES 1. Diagnostic laparoscopy. 2. Laparoscopic cholecystectomy. CARETAKER GROUNDS: None. ANESTHESIA: General endotracheal. INDICATIONS AND FINDINGS: Patient is an 82-year-old male who presented with complaint of epigastric abdominal pain. Workup revealed abnormal HIDA scan with ejection fraction of zero percent. At surgery, the patient was found to have gallbladder distended and edematous. It contained multiple small stones. Cystic duct was about 3 mm in diameter. Common bile duct was about 5 mm in diameter. Liver, stomach and lower abdomen all appeared normal. TECHNIQUE: After adequate general endotracheal anesthesia, with the patient in the supine position, the abdomen was prepped and draped in a sterile fashion with ChloraPrep solution. The skin just to the right of the umbilicus was infiltrated with 0.5% Marcaine. Incision was made, and the abdominal wall was elevated. A Veress needle was introduced. Pneumoperitoneum was then created. A 10-mm trocar and cannula were then passed through the periumbilical wound. Laparoscopic camera was introduced. Initial laparoscopy revealed the gallbladder to be distended. Liver, stomach and lower abdomen all appeared normal. A 20-mm trocar and cannula were placed in the epigastrium, and two 5-mm trocars and cannulas were placed in the right upper quadrant. These were placed under direct vision. Fundus of the gallbladder was grasped and retracted superiorly. The gallbladder was noted to be somewhat edematous. Neck of the gallbladder was grasped and retracted laterally. Peritoneum over the neck of the gallbladder was incised. The gallbladder-cystic duct junction was dissected free. Cystic artery was also dissected free. Cystic artery was divided between Hemoclips close to the gallbladder. Cystic duct was also divided between Hemoclips with 3 clips being left on the common bile duct side. The posterior branch of the cystic artery was also divided between Hemoclips. The gallbladder was dissected free from the liver using scissors and electrocautery. Once it was entirely free, it was placed into an Endo pouch and brought through the epigastric cannula. It contained multiple small stones. Gallbladder bed was inspected for hemostasis, which was seen to be adequate. It was irrigated with saline. All fluid aspirated and inspected for hemostasis, which was seen to be adequate. Instruments and cannulas were then removed. Pneumoperitoneum was evacuated. Wounds were then closed. Fascia in the umbilical and epigastric wound was closed with #0 Vicryl. Skin to all wounds closed with damaris. Sterile dressings applied to each wound. Patient tolerated the procedure well. Estimated blood loss was 10 mL. There were no complications. All counts were correct. Patient was taken to the recovery room in satisfactory condition. Job#: [id number]
[2018-06-26 10:40] VITALS: BP 140/72
== END | disposition home or self-care (01) ==
LOC: OR 06:26
PROVIDERS: ATTEND Surgery
DX: K80.10 Calculus of gallbladder with chronic cholecystitis without obstruction (principal); G89.29 Other chronic pain; I10 Essential (primary) hypertension; R00.1 Bradycardia, unspecified; K21.9 Gastro-esophageal reflux disease without esophagitis; Z01.810 Encounter for preprocedural cardiovascular examination; Z01.812 Encounter for preprocedural laboratory examination; Z01.818 Encounter for other preprocedural examination; Z88.6 Allergy status to analgesic agent; Z88.0 Allergy status to penicillin; Z88.2 Allergy status to sulfonamides; Z95.0 Presence of cardiac pacemaker; Z85.46 Personal history of malignant neoplasm of prostate
CPT/HCPCS: 36415; 47562; 71046; 80053; 85025; 88304; 93005; J0131; J0461; J0690; J1100; J1170; J1956; J2001; J2250; J2270; J2405; J2704

== ENCOUNTER → 2021-07-15 | Day surgery (SDC) | payer MEDICARE, BC ==
[2021-07-13 13:39] LABS: BASOPHILS % 0.2 % (0.0-1.0); EOSINOPHILS % 0.6 % (0.0-6.0); HEMATOCRIT 32.1 % (38.2-49.6); LYMPHOCYTES # (AUTO) 0.7 (1.0-3.2); LYMPHOCYTES % 10.8 % (18.0-39.1); MEAN CORPUSCULAR HEMOGLOBIN 27.9 pg (28-32); MEAN CORPUSCULAR HGB CONC 31.2 g/dL (31-35); MEAN CORPUSCULAR VOLUME 89.4 fL (81-99); MONOCYTES # (AUTO) 0.4 (0.2-0.8); MONOCYTES % 6.9 % (4.4-11.3); NEUTROPHILS # (AUTO) 5.2 (2.1-6.9); NEUTROPHILS % 81.3 % (38.7-80.0); PLATELET COUNT 154 x10e3/uL (140-360); RED BLOOD COUNT 3.59 x10e6/uL (4.3-5.7); RED CELL DISTRIBUTION WIDTH 15.2 % (11.7-14.4)
[~2021-07-15] MED LIST changes: -ACETAMINOPHEN 1000 MG/100 ML 100 ML IV ONE; +AMLODIPINE BESYL5 MG PO; -ATROPINE SULFATE 1 MG/ML VIAL ONE; -BUPIVACAINE 0.25% 30ML SDV INJ ONE; -CEFAZOLIN SOD 1 GM/NS 50ML 50 ML IV ONE; -DEXAMETHASONE SOD PHOS INJ 4 MG/ML VIAL ONE; -EPHEDRINE SULFATE INJ 50 MG/10 ML SYR ONE; -HYDROMORPHONE 2MG/ML 2 MG/ML ML ONE; -LEVOFLOXACIN 500MG/D5W 100ML 100 ML IV ONE; +MIRTAZAPINE15 MG PO; -MORPHINE SULFATE INJ 4 MG/ML INJ 1ML ONE; -NEOSTIGMINE 5 MG/5ML SYR ONE; -ONDANSETRON HCL INJ 2MG/ML 2ML 2 MG/ML VIAL ONE; +POVIDONE IODINE 0.05% 0.05 % ML PO ONE; -SEVOFLURANE INHAL SOLN 250 ML PEN BTL ONE
[2021-07-15 09:54] VITALS: BP 124/64
== END | disposition home or self-care (01) ==
LOC: OR 06:38
PROVIDERS: ATTEND Internal Medicine Gastroenterology
DX: K29.50 Unspecified chronic gastritis without bleeding (principal); K22.2 Esophageal obstruction; K21.00 Gastro-esophageal reflux disease with esophagitis, without bleeding; K44.9 Diaphragmatic hernia without obstruction or gangrene; I10 Essential (primary) hypertension; R73.03 Prediabetes; Z88.6 Allergy status to analgesic agent; Z88.0 Allergy status to penicillin; Z88.2 Allergy status to sulfonamides; Z01.812 Encounter for preprocedural laboratory examination; Z20.822 Contact with and (suspected) exposure to COVID-19; Z79.899 Other long term (current) drug therapy; Z95.0 Presence of cardiac pacemaker; Z85.46 Personal history of malignant neoplasm of prostate; Z87.891 Personal history of nicotine dependence
CPT/HCPCS: 36415; 43233; 43239; 85025; J2001; J2250; J2704; J3010; U0002

== ENCOUNTER → 2024-09-05 | Day surgery (SDC) | payer MEDICARE, BC ==
[2024-08-28 14:34] LABS: BASOPHILS % 0.2 % (0.0-1.0); EOSINOPHILS # (AUTO) 0.1 (0.0-0.4); EOSINOPHILS % 1.5 % (0.0-6.0); HEMATOCRIT 33.7 % (38.2-49.6); HEMOGLOBIN 10.9 g/dL (14.0-18.0); LYMPHOCYTES # (AUTO) 0.6 (1.0-3.2); LYMPHOCYTES % 9.9 % (18.0-39.1); MEAN CORPUSCULAR HEMOGLOBIN 29.5 pg (28-32); MEAN CORPUSCULAR HGB CONC 32.3 g/dL (31-35); MEAN CORPUSCULAR VOLUME 91.1 fL (81-99); MONOCYTES # (AUTO) 0.4 (0.2-0.8); NEUTROPHILS # (AUTO) 4.7 (2.1-6.9); NEUTROPHILS % 81.2 % (38.7-80.0); PLATELET COUNT 138 x10e3/uL (140-360); RED CELL DISTRIBUTION WIDTH 14.5 % (11.7-14.4); WHITE BLOOD COUNT 5.83 x10e3/uL (4.8-10.8)
[~2024-09-05] MED LIST changes: +ALTOPREV40 MG PO; +COREG3.125 MG PO; -FENTANYL CITRATE/PF 100MCG/2 ML INJ ONE; -MIDAZOLAM HCL 2 MG/2 ML VIAL ONE; +PANTOPRAZOLE SO40 MG PO; +PLAVIX75 MG PO; -POVIDONE IODINE 0.05% 0.05 % ML PO ONE; +TROSPIUM CHLORI20 MG PO; -Z.0.AMBIEN10 MG; +Z.0.AMBIEN10 MG PO
[2024-09-05] MEDS: LACTATED RINGER'S 1,000 ML ONE (10:52)
[2024-09-05 13:10] VITALS: BP 125/95; PULSE 70; RESP 16; TEMP 97.1; O2SAT 100
== END | disposition home or self-care (01) ==
LOC: OR 09:00
PROVIDERS: ATTEND Internal Medicine Gastroenterology
DX: K22.2 Esophageal obstruction (principal); K29.50 Unspecified chronic gastritis without bleeding; K44.9 Diaphragmatic hernia without obstruction or gangrene; K57.92 Diverticulitis of intestine, part unspecified, without perforation or abscess without bleeding; C61 Malignant neoplasm of prostate; E11.9 Type 2 diabetes mellitus without complications; I10 Essential (primary) hypertension; N40.0 Benign prostatic hyperplasia without lower urinary tract symptoms; M19.90 Unspecified osteoarthritis, unspecified site; F41.9 Anxiety disorder, unspecified; F32.A Depression, unspecified; Z88.6 Allergy status to analgesic agent; Z88.0 Allergy status to penicillin; Z88.2 Allergy status to sulfonamides; Z01.812 Encounter for preprocedural laboratory examination; Z68.22 Body mass index [BMI] 22.0-22.9, adult; Z95.0 Presence of cardiac pacemaker; Z87.891 Personal history of nicotine dependence
CPT/HCPCS: 36415; 43239; 43249; 85025; 88305; J2003; J2704; J7121